=== PATIENT | female | born 1935 | race Caucasian/White ===

== ENCOUNTER 2017-10-21 20:42 | Emergency (ER) | payer MEDICARE, BC ==
[2017-10-22] MEDS: HYDROCODONE/APAP (5/325) TAB PO (01:41)
[2017-10-22] MEDS: HYDROCODONE/APAP (10/325) TAB PO (03:44)
== END 2017-10-22 04:05 | disposition home or self-care (01) ==
LOC: FTE 20:42
DX: S20.219A Contusion of unspecified front wall of thorax, initial encounter (principal); R00.2 Palpitations; V49.40XA Driver injured in collision with unspecified motor vehicles in traffic accident, initial encounter; Z96.651 Presence of right artificial knee joint; Z96.652 Presence of left artificial knee joint
CPT/HCPCS: 71045; 72125; 72128; 93005; 99285-25